=== PATIENT | female | born 2000 | race Two or more races ===

== ENCOUNTER 2023-01-03 11:49 | Emergency (ER) | payer OTHER ==
[~2023-01-03] VITALS: Ht 177.8 cm; Wt 82.6 kg
[2023-01-03] MEDS ORDERED: TRAZODONE HCL150 MG (11:58)
[2023-01-03] MEDS ORDERED: LORAZEPAM1 MG (11:58)
[2023-01-03] MEDS ORDERED: PAXIL40 MG (11:58)
[2023-01-03] MEDS ORDERED: SEROQUEL50 MG (11:59)
[2023-01-03] MEDS ORDERED: LAMICTAL200 M1 (11:59)
[2023-01-03] MEDS ORDERED: MIRALAX510 GM PO (18:35)
[2023-01-03] MEDS ORDERED: CIPRO500 MG PO (18:35)
[2023-01-03] MEDS ORDERED: PYRIDIUM DS200 MG PO (18:35)
[2023-01-03] MEDS ORDERED: DOLOGESIC 500-1 EACH PO (18:35)
[2023-01-03] MEDS ORDERED: PEPCID20 MG PO (18:35)
== END 2023-01-03 19:07 | disposition home or self-care (01) ==
LOC: ER 11:49
DX: N39.0 Urinary tract infection, site not specified (principal); K59.00 Constipation, unspecified

== ENCOUNTER 2023-05-04 10:19 | Emergency (ER) | payer OTHER ==
[~2023-05-04] VITALS: Ht 177.8 cm; Wt 88.0 kg
[~2023-05-04 10:19] MED LIST: CIPRO500 MG PO; DOLOGESIC 500-1 EACH PO; LAMICTAL200 M1; LORAZEPAM1 MG; MIRALAX510 GM PO; PAXIL40 MG; PEPCID20 MG PO; PYRIDIUM DS200 MG PO; SEROQUEL50 MG; TRAZODONE HCL150 MG
== END 2023-05-04 13:35 | disposition home or self-care (01) ==
LOC: ER 10:19
DX: R21 Rash and other nonspecific skin eruption (principal); Z20.822 Contact with and (suspected) exposure to COVID-19